=== PATIENT | male | born 1985 | race Caucasian/White ===

== ENCOUNTER 2017-04-23 10:44 | Emergency (ER) | payer OTHER ==
[~2017-04-23] VITALS: Ht 188 cm; Wt 91.0 kg
[2017-04-23 10:49] VITALS: BP 136/79
[2017-04-23] MEDS ORDERED: DIPH,PERTUSS(ACELL),TET VAC/PF 0.5 ML IM-VACC ONE ×2 (11:13→11:30)
[2017-04-23] MEDS ORDERED: LIDOCAINE 1%, 20ML ONE (12:14)
[2017-04-23] MEDS ORDERED: LIDOCAINE 1%, 20ML SQ ONE (12:30)
== END 2017-04-23 12:34 | disposition home or self-care (01) ==
LOC: ED 12:28
DX: S01.411A Laceration without foreign body of right cheek and temporomandibular area, initial encounter (principal); S40.012A Contusion of left shoulder, initial encounter; F43.10 Post-traumatic stress disorder, unspecified; Z23 Encounter for immunization; X58.XXXA Exposure to other specified factors, initial encounter; Y93.89 Activity, other specified; Y99.8 Other external cause status; Y92.89 Other specified places as the place of occurrence of the external cause
CPT/HCPCS: 12052; 90471; 90715